=== PATIENT | male | born 1975 | race Caucasian/White ===

== ENCOUNTER 2022-04-22 11:59 | Inpatient (IN) | payer MEDICAID ==
[2022-04-22] VITALS (8 sets, daily range): BP systolic 122–161; BP diastolic 38–87
[~2022-04-22] VITALS: Ht 172.7 cm; Wt 104.3 kg
[2022-04-22] MEDS ORDERED: ADENOSINE 6 MG/2 ML SYR IV ONE ×2 (12:06→12:15)
[2022-04-22] MEDS ORDERED: MAGNESIUM SULFATE 2 GM in IV DEXTROSE 5% 100 ML IV ONE (12:15)
[2022-04-22] MEDS ORDERED: ONDANSETRON 4 MG/2 ML VIAL IV ONE (12:15)
[2022-04-22] MEDS ORDERED: IV NORMAL SALINE 1000 ML BAG IV ONE (12:15)
[2022-04-22] MEDS ORDERED: LORAZEPAM 2 MG/1 ML VIAL IV ONE (12:15)
[2022-04-22] MEDS ORDERED: DILTIAZEM HCL 25 MG IV IV ONE (12:30)
[2022-04-22] MEDS ORDERED: DILTIAZEM HCL IV 125 MG in IV DEXTROSE 5% 100 ML IV ONE (12:30)
[2022-04-22 12:31] LABS: HEMATOCRIT 42.5 % (36.7-47.1); MEAN CORPUSCULAR HEMOGLOBIN 30.2 uug (23.8-33.4); MEAN CORPUSCULAR VOLUME 89.1 fL (73.0-96.2); PLATELET COUNT (AUTO) 285 K/uL (152-348)
[2022-04-22] MEDS ORDERED: LORAZEPAM 2 MG/1 ML VIAL ONE (12:31)
[2022-04-22] MEDS ORDERED: MAGNESIUM SULFATE 1 GM/2 ML VIAL ONE (12:31)
[2022-04-22] MEDS ORDERED: ONDANSETRON 4 MG/2 ML VIAL ONE (12:32)
[2022-04-22 12:45] LABS: MAGNESIUM 1.4 mg/dL (1.8-2.4); PHOSPHOROUS 4.9 mg/dL (2.5-4.9)
--- NOTE | 2022-04-22 12:47 | NUR ---
PT IS IN ROOM #1A. DR RODRIGUEZ EVALUATED THE PT.
[2022-04-22] MEDS ORDERED: DILTIAZEM HCL 50 MG IV ONE (12:49)
[2022-04-22 12:50] LABS: ALANINE AMINOTRANSFERASE 495 U/L (16-63); ALKALINE PHOSPHATASE 119 U/L (50-136); ASPARTATE AMINOTRANSFERASE 1000 U/L (15-37); BILIRUBIN,DIRECT 0.6 mg/dL (0.0-0.2); BILIRUBIN,TOTAL 1.5 mg/dL (0.2-1.0); CARBON DIOXIDE 19 mmol/L (21-32); CHLORIDE 91 mmol/L (98-107); CREATININE 0.9 mg/dL (0.6-1.3); POTASSIUM 4.6 mmol/L (3.5-5.1); TOTAL PROTEIN, SERUM 7.8 g/dL (6.4-8.2); UREA NITROGEN, BLOOD 19 mg/dL (7-18)
[2022-04-22 12:52] LABS: ETHANOL < 3 MG/DL (0-0)
[2022-04-22 12:53] LABS: GLUCOSE 390 mg/dL (74-106)
[2022-04-22] MEDS ORDERED: DILTIAZEM HCL IV 125 MG in IV NORMAL SALINE 100 ML IV ONE (13:00)
[2022-04-22] MEDS ORDERED: ASPIRIN 81 MG TAB.CHEW PO ONE (13:15)
--- NOTE | 2022-04-22 13:17 | NUR ---
PT's HR CONVERTED FROM WHD=674 BPM TO SR=96 BPM AFTER ADMINISTRATION OF CARDIZEM [address] RODRIGUEZ NOTIFIED. CONRINUE TO NONITOR THE PT.
--- NOTE | 2022-04-22 14:03 | NUR ---
SR MORENO EVALUATED THE PT.
--- NOTE | 2022-04-22 14:25 | NUR ---
REPORT WAS GIVEN TO RN TRLRMETRY. PT WAS TRANSFERED TO ROOM #323.
[2022-04-22] MEDS ORDERED: ASPIRIN 81 MG TAB.CHEW ONE (14:29)
[2022-04-22] MEDS ORDERED: NITROGLYCERIN 0.4 MG/TAB BOTTLE SL PRN (14:30)
[2022-04-22] MEDS ORDERED: ONDANSETRON 4 MG/2 ML VIAL IV PRN (14:30)
[2022-04-22] MEDS ORDERED: MORPHINE SULFATE 2 MG/1 ML DISP.SYRIN IV PRN (14:30)
[2022-04-22] MEDS ORDERED: DOCUSATE SODIUM 100 MG CAPSULE PO PRN (14:30)
[2022-04-22] MEDS ORDERED: LORAZEPAM 0.5 MG TABLET PO PRN (14:30)
[2022-04-22] MEDS ORDERED: ENOXAPARIN SODIUM 60 MG/0.6 ML DISP.SYRIN SQ SCH (14:30)
[2022-04-22 14:36] LABS: *AMPHETAMINE, URINE NEGATIVE (NEGATIVE); *CANNABINOID, URINE NEGATIVE (NEGATIVE); *COCCAINE, URINE NEGATIVE (NEGATIVE); *OPIATE, URINE NEGATIVE (NEGATIVE); *PHENCYCLIDINE SCREEN,URINE NEGATIVE (NEGATIVE)
[2022-04-22 14:45] LABS: *BILIRUBIN,URIN NEGATIVE (NEGATIVE); *BLOOD, URINE NEGATIVE (NEGATIVE); *CLARITY,URINE CLEAR (CLEAR); *COLOR,URINE YELLOW (YELLOW); *KETONES,URINE 4+ (NEGATIVE); LEUKOCYTE ESTERASE ,URINE NEGATIVE (NEGATIVE); NITRITE, URINE NEGATIVE (NEGATIVE); UGLUCOSE 2+ (NEGATIVE)
[2022-04-22] MEDS ORDERED: ENOXAPARIN SODIUM 100 MG/ML DISP.SYRIN SQ ONE (14:56)
[2022-04-22] MEDS: ENOXAPARIN SODIUM 100 MG/ML DISP.SYRIN SQ SCH (14:58)
--- NOTE | 2022-04-22 15:20 | NUR ---
Patient is a 46 year old male. AO x 4. 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 Patient is sinus rhythm with heart rate in the 100s No complaints of chest pain. No respiratory distress at the moment. Patient saturating 97% on room air. Patient walks with steady gait. IV site on right wrist 18G and right AC 20G flushing, patent, and intact. Will carry out admission orders.
--- NOTE | 2022-04-22 15:42 | NUR ---
Echocardiogram being conducted at bedside.
--- NOTE | 2022-04-22 16:10 | NUR ---
Notified Dr. Schuster about patient's troponin of 308. Received order to transfer patient to ICU and will start insulin drip.
--- NOTE | 2022-04-22 16:30 | NUR ---
Gave report to ADIA Cunningham.
--- NOTE | 2022-04-22 16:50 | NUR ---
Patient transferred to ICU unit accompanied by RN.
[2022-04-22] MEDS ORDERED: METOPROLOL TARTRATE 50 MG TABLET PO SCH (17:00)
[2022-04-22] MEDS ORDERED: DEXTROSE 50% 50 ML DISP.SYRIN IV PRN (17:30)
[2022-04-22] MEDS ORDERED: INSULIN REGULAR, HUMAN 100 UNIT in IV NORMAL SALINE 99 ML IV PRN ×2 (17:30)
--- NOTE | 2022-04-22 17:56 | NUR ---
Started Insulin gtt at 1730 blood sugar was 306 and Insulin started per DKA protocol Algorithm #1 started Insulin 100 units/1 ml wt 104kg =10.4ml/hr at 0.1units/kg/hr. Eat 25% of meal remains on room air in no distress.
--- NOTE | 2022-04-22 18:25 | NUR ---
Called Dr. Tanner new orders written confirmed to do not start Cardizem gtt.
[2022-04-22] MEDS ORDERED: BLOOD SUGAR DIAGNOSTIC 1 EACH STRIP VI SCH (18:30)
--- NOTE | 2022-04-22 18:56 | NUR ---
280 blood sugar followed insulin #1 scale. Insulin gtt is decreased to 2u/hr or 2ml/hr.
[2022-04-22] MEDS: BLOOD SUGAR DIAGNOSTIC 1 EACH STRIP VI SCH ×3 (21:23→23:11)
[2022-04-22] MEDS: IV 1/2NS 1000 ML 1,000 ML IV SCH ×3 (21:40→23:27)
[2022-04-22] MEDS ORDERED: MAGNESIUM SULFATE/D5W 0 ML ONE (23:33)
[2022-04-23] VITALS (13 sets, daily range): BP systolic 117–157; BP diastolic 66–99
[2022-04-23] MEDS: BLOOD SUGAR DIAGNOSTIC 1 EACH STRIP VI SCH ×11 (00:12→21:00)
[2022-04-23 05:26] LABS: HEMATOCRIT 38.2 % (36.7-47.1); MEAN CORPUSCULAR HEMOGLOBIN 30.2 uug (23.8-33.4); PLATELET COUNT (AUTO) 184 K/uL (152-348)
[2022-04-23 05:44] LABS: CARBON DIOXIDE 27 mmol/L (21-32); CHLORIDE 97 mmol/L (98-107); CREATININE 0.6 mg/dL (0.6-1.3); GLUCOSE 221 mg/dL (74-106); MAGNESIUM 1.9 mg/dL (1.8-2.4); POTASSIUM 3.5 mmol/L (3.5-5.1); UREA NITROGEN, BLOOD 13 mg/dL (7-18)
[2022-04-23] MEDS: ENOXAPARIN SODIUM 100 MG/ML DISP.SYRIN SQ SCH (06:39)
[2022-04-23] MEDS: IV 1/2NS 1000 ML 1,000 ML IV SCH ×2 (06:40→23:00)
[2022-04-23] MEDS ORDERED: POTASSIUM CHLORIDE 50 ML IV SCH (06:45)
--- NOTE | 2022-04-23 07:30 | NUR ---
REPORT GIVEN TO ADIA MALDONADO
[2022-04-23 08:09] LABS: BILIRUBIN,DIRECT 0.4 mg/dL (0.0-0.2); BILIRUBIN,TOTAL 1.4 mg/dL (0.2-1.0); TOTAL PROTEIN, SERUM 6.8 g/dL (6.4-8.2)
--- NOTE | 2022-04-23 08:14 | NUR ---
Awake alert and oriented no signs of hyper or hypo glycemia. Remains on insulin gtt blood sugar 195 decreased insulin gtt from 1unit/hr to 0.5units/hr per DKA protocol using Algorithm "1.
[2022-04-23] MEDS ORDERED: POTASSIUM CHLORIDE 20 MEQ TAB.PRT.SR PO ONE (08:30)
[2022-04-23] MEDS ORDERED: ASPIRIN 81 MG TAB.CHEW PO SCH (09:00)
[2022-04-23] MEDS: DILTIAZEM HCL CD 120 MG CAP.SR.24H PO SCH (09:06)
[2022-04-23] MEDS: INSULIN GLARGINE,HUM 300 UNITS/3 ML CARTRIDGE SQ SCH (09:07)
[2022-04-23] MEDS ORDERED: INSULIN REGULAR, HUMAN 300 UNITS/3 ML VIAL SQ PRN (09:15)
[2022-04-23] MEDS ORDERED: DEXTROSE 50% 50 ML DISP.SYRIN IV PRN (09:15)
[2022-04-23] MEDS: INSULIN REGULAR, HUMAN 300 UNIT/3 ML VIAL SQ PRN ×3 (09:20→16:53)
--- NOTE | 2022-04-23 17:44 | NUR ---
Transferred to medical surgical floor on telemetry unit RN present via w/c stable on room air.
--- NOTE | 2022-04-23 17:50 | NUR ---
RECEIVED FROM CCU. ALERT & ORIENTED. NO C/O DISCOMFORT.
[2022-04-24] VITALS: BP 110/63
[2022-04-24] MEDS: IV 1/2NS 1000 ML 1,000 ML IV SCH ×3 (03:30→08:00)
[2022-04-24 04:00] VITALS: BP 125/85
[2022-04-24] MEDS: BLOOD SUGAR DIAGNOSTIC 1 EACH STRIP VI SCH ×3 (07:30→16:59)
--- NOTE | 2022-04-24 07:30 | NUR ---
REPORT GIVEN TO ADIA ROTHMAN
[2022-04-24] MEDS: INSULIN REGULAR, HUMAN 300 UNIT/3 ML VIAL SQ PRN ×2 (07:51→17:03)
[2022-04-24] MEDS: DILTIAZEM HCL CD 120 MG CAP.SR.24H PO SCH (09:05)
[2022-04-24] MEDS: INSULIN GLARGINE,HUM 300 UNITS/3 ML CARTRIDGE SQ SCH (09:06)
[2022-04-24] MEDS ORDERED: DILT120C87 PO (10:10)
[2022-04-24] MEDS ORDERED: Insulin Glargine,Hum SQ (10:10)
[2022-04-24] MEDS ORDERED: METF-440 PO (10:10)
[2022-04-24 11:57] VITALS: BP 124/90
[2022-04-24] MEDS ORDERED: BLOO-1672 MC (13:57)
[2022-04-24 16:10] VITALS: BP 139/90
--- NOTE | 2022-04-24 16:30 | NUR ---
MODERATE AMOUNT SOFT FORMED STOOL IN BATHROOM. VOIDING QS.SALINE LOCKS RIGHT ANTICUBITAL AND RIGHT FOREARM DC'D. ANGIOCATHS REMOVED INTACT. DIABETIC EDUCATION GIVEV. PREPARED FOR DISCHARGE.
--- NOTE | 2022-04-24 17:20 | NUR ---
DISCHARGED AMBULATORY, ACCOMPANIED BY Anderson WALKER RN TO [facility].
== END 2022-04-24 17:20 | disposition home or self-care (01) | DRG 201 ==
LOC: ER 11:59 → TELE3 14:06 → CCU 16:35 → TELE3 04-23 17:30
PROVIDERS: ADMIT Internal Medicine; ATTEND Internal Medicine
DX: I47.1 Supraventricular tachycardia (principal); I21.A1 Myocardial infarction type 2; E11.10 Type 2 diabetes mellitus with ketoacidosis without coma; E87.1 Hypo-osmolality and hyponatremia; E83.42 Hypomagnesemia; F41.9 Anxiety disorder, unspecified; Z20.822 Contact with and (suspected) exposure to COVID-19; F10.139 Alcohol abuse with withdrawal, unspecified
CPT/HCPCS: 36415; 71045; 83690; 83735; 84100; 84484; 85025; 93005; 93307; A4663; G0378; G0480; J0153; J1650; J1815; J2060; J2405; J3475; J3490; J7040